=== PATIENT | female | born 1970 | race Caucasian/White ===

== ENCOUNTER → 2024-09-03 | Outpatient (CLI) | payer BC, MEDICAID, SELFPAY ==
--- NOTE | 2024-09-03 12:29 | XR_ITS ---
Examination: CT chest, without intravenous contrast. CT abdomen, without intravenous contrast. CT pelvis, without intravenous contrast. CT chest with intravenous contrast CT abdomen with intravenous contrast CT pelvis with intravenous contrast 2-D sagittal and coronal reconstructions. 3-D reconstructions. Date and time of exam:September 03, 2024 1324 hours INDICATIONS: Diagnosis malignant neoplasm unspecified site of breast, intermittent fevers abdominal pain 2 months CTDI vol (mgy) 22 DLP ([id number] Technique: Multiple CT images, 3.0 mm slice thickness, obtained chest, abdomen, pelvis, with the high-resolution 64 slice scanner.., Pre and post intravenous administration 60 cc [id number] Sagittal and coronal 2-D reconstructions are obtained. 3-D reconstructions Low dose protocols were performed. One or more of the following dose reduction techniques were used; automated exposure control, adjustment of the mA and/or KV according to patient size, use of iterative reconstruction technique. Findings: No thoracic aortic aneurysm dilatation No pulmonary artery emboli on this non-CTA study Intact right breast implants No paratracheal tracheobronchial or not the 8 mm soft pulmonary nodule left upper lobe image 107 2 mm pulmonary nodule right midlung image 195 2 mm pulmonary nodule right lower lobe image 2 mm pulmonary nodule right middle lobe image 212 3 mm pleural-based pulmonary nodule left lower lobe image 212 2 mm pleural-based pulmonary nodule left lower lobe image 223 8mm pulmonary nodule left lower lobe image 228 No pneumonia or pulmonary edema Benign liver cysts, fatty infiltration Absent gallbladder No splenic or pancreatic mass No renal or ureteral calculi, no hydronephrosis No bowel obstruction Normal appendix Colonic diverticulosis, no diverticulitis Anteverted atrophic uterus No adnexal mass Urinary bladder Moderate osteopenia IMPRESSION: Multiple pulmonary nodules as above, consider metastatic pulmonary nodular disease No mediastinal lymphadenopathy No abdominal or pelvic lymphadenopathy
== END | disposition home or self-care (01) ==
LOC: SCAT 11:19
PROVIDERS: PCP Family Medicine; Referring Provider Internal Medicine; Visit Provider Internal Medicine
DX: R91.8 Other nonspecific abnormal finding of lung field (principal); C50.919 Malignant neoplasm of unspecified site of unspecified female breast
CPT/HCPCS: 71270; 74178; A4649; Q9967

== ENCOUNTER 2025-06-21 10:10 | Day surgery (SDC) | payer BC, MEDICAID, SELFPAY ==
[2025-06-18 14:24] VITALS: BMI 27.4
[2025-06-21] VITALS (9 sets, daily range): BP systolic 126–180; BP diastolic 76–104; PULSE 58–68; RESP 12–20; TEMP 36.6–36.7; O2SAT 96–100; BMI 27.1
[2025-06-21] MEDS: MIDAZOLAM INJ 1 MG/ML VIAL 2 ML (ASD USE ONLY) 2 MG IVP (12:26)
[2025-06-21] MEDS: SODIUM CHLORIDE 0.9% 500 ML 500 ML 20 ML IV (12:26)
[2025-06-21] MEDS: fentaNYL CIT INJ 50 mCg/ML AMP 2ML (ASD USE ONLY) IVP (12:26)
== END 2025-06-21 13:30 | disposition home or self-care (01) ==
PROVIDERS: PCP Family Medicine; Referring Provider Specialist; Visit Provider Specialist
PROC: 0DBE8ZX Excision of Large Intestine, Via Natural or Artificial Opening Endoscopic, Diagnostic (ICD-10-PCS; CPT 45380; principal; 2025-06-21 13:30)
DX: K52.9 Noninfective gastroenteritis and colitis, unspecified (principal); K63.89 Other specified diseases of intestine; K62.89 Other specified diseases of anus and rectum; K64.9 Unspecified hemorrhoids; K57.30 Diverticulosis of large intestine without perforation or abscess without bleeding
CPT/HCPCS: 45380; A4649; J1200; J2250; J3010; J7999